=== PATIENT | female | born 1945 | race Two or more races ===

== ENCOUNTER 2017-12-15 02:49 | Emergency (ER) | payer OTHER ==
[~2017-12-15] VITALS: Ht 160 cm; Wt 63.5 kg
[2017-12-15] MEDS ORDERED: TAMS0.4C (03:07)
[2017-12-15] MEDS ORDERED: DICY20TA PO (03:53)
[2017-12-15] MEDS ORDERED: KETO10TA2 PO (03:53)
== END 2017-12-15 04:14 | disposition home or self-care (01) ==
LOC: ER 02:49
DX: R30.0 Dysuria (principal)

== ENCOUNTER 2021-10-15 10:06 | Emergency (ER) | payer OTHER ==
[~2021-10-15] VITALS: Ht 160 cm; Wt 63.5 kg
[~2021-10-15 10:06] MED LIST: DICY20TA PO; KETO10TA2 PO; TAMS0.4C
== END 2021-10-15 13:48 ==
LOC: ER 10:06
DX: N30.10 Interstitial cystitis (chronic) without hematuria (principal); R30.0 Dysuria

== ENCOUNTER 2023-05-24 10:12 | Emergency (ER) | payer OTHER ==
[~2023-05-24] VITALS: Ht 160 cm; Wt 61.2 kg
[2023-05-24] MEDS ORDERED: CRESTOR10 MG PO (10:44)
[2023-05-24 20:00] LABS: PH,URINE 5.5 (5.0-8.0); URINE APPEARANCE Turbid; URINE BILIRRUBIN Negative (NEGATIVE); URINE BLOOD Small; URINE COLOR Yellow; URINE GLUCOSE Negative (NEGATIVE); URINE LEUKOCYTE Large; URINE NITRATE Negative; URINE PROTEIN Negative (NEGATIVE); URINE UROBILINOGEN 0.2 E.U./dl
[2023-05-24 20:04] LABS: URINE BACTERIA 711.8 uL (0.0-1933); URINE EPITHELIAL CELLS 5.8 uL (0.0-38.8)
[2023-05-24 20:10] LABS: URINE RBC 1.4 uL (0.0-20.8)
== END 2023-05-24 19:47 | disposition home or self-care (01) ==
LOC: ER 10:12
PROVIDERS: General Practice
DX: B34.9 Viral infection, unspecified (principal); Z87.440 Personal history of urinary (tract) infections; Z20.822 Contact with and (suspected) exposure to COVID-19